=== PATIENT | male | born 1955 | race Caucasian/White ===

== ENCOUNTER → 2024-07-29 10:17 | Outpatient (CLI) | payer MEDICARE, SELFPAY ==
--- NOTE | 2024-07-29 10:39 | DI.RAD.S_ITS ---
PROCEDURE: XR CALCANEOUS RT MIN 2V INDICATIONS: RT HEEL FRACTURE TECHNIQUE: Two views of the calcaneus were acquired. COMPARISON: None. FINDINGS: Bones: Mild cortical irregularity and sclerosis the calcaneal body consistent with minimally displaced fracture. No other fractures are identified. The visualized joint spaces are well preserved. No suspicious bony lesions. Soft tissues: No suspicious calcifications. Achilles tendon appears normal. IMPRESSION: Subacute appearing minimally displaced calcaneal body fracture with moderate sclerosis. Dictated by: Zacarias Gross M.D. on 07/29/2024 at 23:55 Approved by: Zacarias Gross M.D. on 07/29/2024 at 23:57
== END ==
PROVIDERS: Referring Provider Orthopaedic Surgery; Visit Provider Orthopaedic Surgery
DX: S92.061D Displaced intraarticular fracture of right calcaneus, subsequent encounter for fracture with routine healing (principal); X58.XXXD Exposure to other specified factors, subsequent encounter
CPT/HCPCS: 73650